=== PATIENT | female | born 1965 | race Caucasian/White ===

== ENCOUNTER 2017-03-10 09:34 | Day surgery (SDC) | payer OTHER ==
[~2017-03-10] VITALS: Ht 157.5 cm; Wt 64.6 kg
[2017-03-10 10:12] VITALS: Ht 157.5 cm; Wt 64.6 kg
[2017-03-10] MEDS ORDERED: FAMO20TA18 PO (10:18)
[2017-03-10 10:37] VITALS: BP 118/67; PULSE 60; RESP 12
[2017-03-10] MEDS ORDERED: MIDAZOLAM 1 MG/ML 2 ML INJ ONE ×2 (11:21)
[2017-03-10] MEDS ORDERED: FENTAnyl 50 MCG/ML VIAL ONE (11:21)
[2017-03-10 12:04] VITALS: BP 111/75; PULSE 62; RESP 20
--- NOTE | 2017-03-14 09:48 | GILP ---
DATE OF PROCEDURE: 03/10/2017 PROCEDURE: EGD with biopsy and colonoscopy. INDICATION: A 51-year-old female undergoing this procedure for iron deficiency anemia. The risks of the procedure and related complications, anesthetic risks, discussed and informed consent was obtained. DESCRIPTION OF ESOPHAGOGASTRODUODENOSCOPY: The patient was brought to the GI lab and sedated with Versed 4 mg, fentanyl 75 mg up to optimal sedation. Scope was passed with much ease into the esophagus, which was grossly within normal limits. The G- line was at 37 cm. Stomach mucosa revealed erosive gastritis. Biopsies taken randomly from stomach to rule out H. pylori infection. The duodenum 1st and 2nd part appeared normal, however, 2 biopsies obtained, 1 from the , 1 from the 2nd part to rule out celiac disease. Retroflexion in the stomach was normal. The scope was straightened out and removed it with good patient tolerance. IMPRESSION: 1. Erosive gastritis. 2. Normal esophagus. 3. Normal duodenum. 4. Normal ampulla. PLAN: Review histopathology DESCRIPTION OF COLONOSCOPY: The patient was turned around and scope was passed with much ease into rectum and advanced through sigmoid, descending transverse colon all the way into the cecum. Appendiceal orifice was identified. While coming out, mucosa was thoroughly inspected. The rest of the colon appeared normal. A few diverticula seen on the left side of the colon. Retroflexion was done and no growth was seen. Scope was straightened out and removed with good patient tolerance. IMPRESSION: 1. Diverticulosis left side of the colon. 2. Negative all the way into the cecum. 3. Clarity and cleanliness was good. 4. Normal . PLAN: Stay on a high-fiber diet and will do capsule endoscopy in the office. Dictated By: Chico Gilliland MD /[email or web address] /Document#: [id number]
== END 2017-03-10 16:37 | disposition home or self-care (01) ==
LOC: GIL 09:34
PROVIDERS: ATTEND Internal Medicine Gastroenterology
DX: D50.9 Iron deficiency anemia, unspecified (principal); K29.50 Unspecified chronic gastritis without bleeding; K57.90 Diverticulosis of intestine, part unspecified, without perforation or abscess without bleeding
CPT/HCPCS: 43239; 45378; 88305; 88312; J2250; J3010; Z7610